=== PATIENT | male | born 1960 | race African-American/Black ===

== ENCOUNTER 2018-12-26 10:16 | Emergency (ER) | payer OTHER ==
[~2018-12-26] VITALS: Ht 188 cm; Wt 141.0 kg
[2018-12-26] MEDS ORDERED: METF-416 PO (10:42)
[2018-12-26] MEDS ORDERED: SPIR25TA6 PO (10:42)
[2018-12-26] MEDS ORDERED: GLIP10TA10 PO (10:42)
[2018-12-26] MEDS ORDERED: TAMS0.4C31 PO (10:42)
[2018-12-26] MEDS ORDERED: PREG75CA PO (10:42)
[2018-12-26 14:20] LABS: BASOPHILS % 0.8 % (0.0-2.0); HEMATOCRIT. 39.5 % (42.0-52.0); LYMPHOCYTES % 27.5 % (20.0-50.0); MEAN CORPUSCULAR VOLUME 79.3 fL (80.0-94.0); MEAN PLATELET VOLUME 7.9 fl (7.4-10.4); MONOCYTES % 5.9 % (2.0-8.0); NEUTROPHILS % 63.8 % (40.0-76.0); PLATELET 298 x1000/uL (130-400); RED BLOOD CELL COUNT 4.99 mill/uL (4.7-6.1); RED CELL DISTRIBUTION WIDTH 14.1 % (11.6-14.6)
[2018-12-26 14:28] LABS: CHLORIDE 108 mEq/L (98-107)
[2018-12-26] MEDS ORDERED: IOHEXOL-300 100 ML BOTTLE ONE (16:53)
[2018-12-26 17:58] VITALS: BP 150/91
== END 2018-12-26 18:13 | disposition home or self-care (01) ==
LOC: ER 10:16
DX: T63.441A Toxic effect of venom of bees, accidental (unintentional), initial encounter (principal); X58.XXXA Exposure to other specified factors, initial encounter; E11.9 Type 2 diabetes mellitus without complications; E78.00 Pure hypercholesterolemia, unspecified; I10 Essential (primary) hypertension; Z90.49 Acquired absence of other specified parts of digestive tract; Z90.89 Acquired absence of other organs; Z79.899 Other long term (current) drug therapy
CPT/HCPCS: 36415; 70491; 71045; 71260; 80053; 85025; 93005; 99284; Q9967